=== PATIENT | female | born 1950 | race Caucasian/White ===

== ENCOUNTER 2025-05-31 08:24 | Emergency (ER) | payer MEDICARE, SELFPAY ==
[2025-05-31 08:40] VITALS: BP 130/87; PULSE 68; RESP 16; TEMP 36.7; O2SAT 99
--- NOTE | 2025-05-31 09:10 | ED.URI ---
HPI - URI/Sore Throat General Chief Complaint: Upper Respiratory Infection Stated Complaint: Upper Respiratory Symptoms Time Seen by Provider: 05/31/25 08:48 Source: patient and RN notes reviewed Mode of arrival: ambulatory Limitations: no limitations History of Present Illness HPI Narrative: Patient presents today with a 6 day history of cough, nasal congestion, ear pain, sore throat, subjective fever, nausea. She reports left eye swelling and bilateral matting with purulent green drainage that started today. Denies shortness of breath, chest pain. She has been using DayQuil and NyQuil without relief as well as warm compresses on the eyes. Denies history of asthma or COPD. Related Data Home Medications ?Medication ?Instructions ?Recorded ?Confirmed ?Last Taken ?Type estradiol 1.25 mg/1.25 gram (0.1 05/31/25 Unknown History %) transdermal gel packet progesterone micronized 200 mg mg 05/31/25 Unknown History capsule testosterone 50 mg/5 gram (1 %) 05/31/25 Unknown History transdermal gel Allergies Allergy/AdvReac Type Severity Reaction Status Date / Time No Known Allergies Allergy Verified 05/31/25 08:39 [facility] Comments At time of signature, I have reviewed and agree with nursing past medical, surgical, social and family history unless otherwise noted. Please see nursing chart for further information. There is no relevant family history pertinent to the presenting complaint Exam Narrative: GENERAL: Well-appearing, well-nourished, and in no acute distress. HEAD: Normocephalic, atraumatic. EYES: EOMI. PERRL. Bilateral injected conjunctiva. Small amount of green purulent discharge in the right lateral canthus and crusted on the lower eyelash. Chemosis on the left. ENT: Mucous membranes pink and moist. Nares mildly congested. No rhinorrhea. TMs normal bilaterally. Throat mild erythema at the bilateral palatine arch without edema or exudate. Uvula midline. NECK: Normal AROM. Supple. No lymphadenopathy. CHEST: No respiratory distress. Clear to auscultation. HEART: Regular rate and rhythm. No murmur appreciated. EXTREMITIES: Normal range of motion. No edema. SKIN: Warm, dry, no rash. Capillary refill normal. Normal skin turgor. NEURO: No focal deficits. Alert and oriented x3. Gait steady. PSYCH: Normal affect. No signs of depression or anxiety. Course Course Level of Care: Express Care Visit Vital Signs Vital signs: Vital Signs Temperature 98.1 F 05/31/25 08:40 Pulse Rate 68 05/31/25 08:40 Respiratory Rate 16 05/31/25 08:40 Blood Pressure 130/87 05/31/25 08:40 Pulse Oximetry 99 05/31/25 08:40 Temperature 98.1 F 05/31/25 08:40 Pulse Rate 68 05/31/25 08:40 Respiratory Rate 16 05/31/25 08:40 Blood Pressure 130/87 05/31/25 08:40 Pulse Oximetry 99 05/31/25 08:40 Reviewed MDM - URI/Sore Throat MDM Narrative Medical decision making narrative: 75-year-old female patient presents with a 6 day history of cough congestion, nausea, bilateral ear pain with new red and swollen eyes with purulent discharge. Rapid strep positive. She will be treated with amoxicillin for the strep throat and Polytrim for the bacterial conjunctivitis. She has no shortness of breath or any other red flag symptoms that would warrant transfer to the emergency department at this time. Vital signs stable. Anticipatory guidance and ED precautions given. Differential Diagnosis Differential diagnosis: Likely upper respiratory infection, sinusitis, viral infection, bronchitis, pharyngitis and other (Strep throat, conjunctivitis) Lab Data Attestation: I reviewed the patient's lab results. Lab results narrative: Rapid strep positive Critical Care Time Critical Care Time Critical Care Time: No Discharge Plan Discharge Clinical Impression: Strep throat, Bacterial conjunctivitis of both eyes Patient Disposition: Home Condition: Stable Instructions: Strep Throat (DC), Conjunctivitis (ED) Additional Instructions: You have tested positive for strep throat. Please take the amoxicillin as prescribed until gone. You will be contagious for 24 hours after starting the medication. Take Tylenol or Ibuprofen for pain or fever, if able. Rest and stay hydrated. Follow up with your PCP in 3 days if symptoms are not improving. Go to the ER immediately if you develop worsening symptoms such as shortness of breath, difficulty swallowing. Use the eyedrops as directed. Wash your hands frequently, especially before and after use of the drops. Your blood pressure was elevated above 120/80 today at Urgent Care. This puts you above the threshold for follow up. Please schedule a followup visit with your personal physician as soon as possible, for further evaluation and treatment. Even blood pressure exceeding 120/80 may indicate pre-hypertension. If you need help finding a new PCP, please call the physician liaison at [facility] at [phone]. Patient Language: Romanian Prescriptions: New polymyxin B sulf-trimethoprim 10,000 unit- 1 mg/mL drops 1 drp EACH EYE QID 7 Days Qty: 10 0RF amoxicillin 875 mg tablet 875 mg PO Q12H 10 Days Qty: 20 0RF No Action progesterone micronized 200 mg capsule testosterone 50 mg/5 gram (1 %) gel estradiol 1.25 mg/1.25 gram (0.1 %) gel in packet Follow-up/Referrals: PHYSICIAN,COMMISSIONER [employer] [Primary Care Provider] - Time of Disposition: 09:16
[2025-05-31 09:13] LABS: EDSTREPNEGPOS1 Positive (Negative)
== END 2025-05-31 09:21 | disposition home or self-care (01) ==
PROVIDERS: Emergency Provider Nurse Practitioner
DX: J02.0 Streptococcal pharyngitis (principal); H10.9 Unspecified conjunctivitis
CPT/HCPCS: 87880; 99213; G0463

== ENCOUNTER 2025-06-06 08:26 | Emergency (ER) | payer MEDICARE, SELFPAY ==
--- NOTE | 2025-06-06 08:30 | ED_ITS ---
HPI - Eye Problem General Chief complaint: Eye Problems Stated complaint: [facility] Source: patient and RN notes reviewed Mode of arrival: ambulatory Limitations: no limitations History of Present Illness HPI Narrative: 75-year-old female presents with concern for ongoing eye symptoms. Reports 6 days ago she was seen and treated for strep throat hand conjunctivitis. She reports her strep symptoms are improved, her eye symptoms were improving but this morning she woke up with matted eyes again. She has been using the eyedrops as directed. MD chief complaint: other (discharge) Related Data Home Medications ?Medication ?Instructions ?Recorded ?Confirmed ?Last Taken ?Type estradiol 1.25 mg/1.25 gram (0.1 05/31/25 Unknown History %) transdermal gel packet progesterone micronized 200 mg mg 05/31/25 Unknown History capsule testosterone 50 mg/5 gram (1 %) 05/31/25 Unknown History transdermal gel Allergies Allergy/AdvReac Type Severity Reaction Status Date / Time No Known Allergies Allergy Verified 06/06/25 08:39 Review of Systems Review of Systems: CONSTITUTIONAL: Denies malaise, chills, sweats, or fever. EYES: Denies visual changes. Reports bilateral redness, irritation, discharge. ENT: Denies rhinorrhea, congestion, sinus pain, otalgia or sore throat. SKIN: Denies rash or itching. NEUROLOGIC: Denies numbness, weakness, or headache. PSYCHIATRIC: Denies anxiety or depression. All systems reviewed & are unremarkable except as noted in HPI and below [facility] Comments At time of signature, agree with nursing past medical, surgical, social and family history. There is no relevant family history pertinent to the presenting complaint Exam Narrative: GENERAL: Well-appearing, well-nourished, and in no acute distress. HEAD: Normocephalic, atraumatic. EYES: PERRLA, EOMI. No nystagmus. Bilateral sclera and conjunctivae mildly injected. Upper and lower eyelid unremarkable, no periorbital edema noted ENT: Nares clear, turbinates pink, no rhinorrhea or epistaxis. Mucous membranes moist. TM pearly fisher with sharp light reflex bilaterally; no tragal tenderness. NECK: Supple. CHEST: No respiratory distress. Speaks in full sentences. HEART: Regular rate and rhythm. SKIN: Warm, dry, no visible rash. NEURO: Alert and oriented x3. PSYCH: Normal mood and affect Course Course Emergency Course: Patient is aware of diagnosis, understands and agrees to treatment plan. Anticipatory guidance given. Patient agrees to follow-up as directed and is aware of reasons to seek care at the emergency department. Portions of this record may have been created with voice recognition software Level of Care: Express Care Visit Vital Signs Vital signs: Reviewed. MDM - Eye Problem MDM Narrative Medical decision making narrative: Consideration of the following conditions may be warranted for the presenting problem, they are not final diagnoses: Bacterial conjunctivitis, allergic conjunctivitis, viral conjunctivitis, foreign body, blepharitis, chalazion, hordeolum, corneal abrasion, preseptal cellulitis, orbital cellulitis. No evidence of proptosis, ophthalmoplegia, vision loss, pain with eye movement. Exam findings show no acute concerns or changes; patient is non-toxic appearing and is in no distress. Patient is appropriate for outpatient treatment and follow-up. Critical Care Time Critical Care Time Critical Care Time: No Discharge Plan Discharge Clinical Impression: Conjunctivitis Patient Disposition: Home Condition: Stable Instructions: How to Use Eye Drops (ED) Additional Instructions: Avoid touching or rubbing your eyes. Use Aquaphor to sooth and protect the skin around your eyes Use a warm or cool washcloth on your eye for comfort Use eyedrops as directed Practice good handwashing and hygiene to prevent spread of infection You may take Tylenol or ibuprofen for pain Follow-up with PCP or block and case maker if condition is not improving in 2-3days. Go to the emergency room if you have pain behind your eye, pressure behind your eye, difficulty seeing, or other severe symptoms Patient Language: Spanish Prescriptions: New ciprofloxacin HCl 0.3 % drops See Rx Instructions EACH EYE .COMPLEX Qty: 2.5 0RF Rx Instructions: put 1-2 drps in affected eye(s) every 6hr for 7 days No Action progesterone micronized 200 mg capsule testosterone 50 mg/5 gram (1 %) gel estradiol 1.25 mg/1.25 gram (0.1 %) gel in packet polymyxin B sulf-trimethoprim 10,000 unit- 1 mg/mL drops 1 drp EACH EYE QID 7 Days Qty: 10 0RF amoxicillin 875 mg tablet 875 mg PO Q12H 10 Days Qty: 20 0RF Follow-up/Referrals: PHYSICIAN,SUPERVISOR [employer] [Primary Care Provider] - Time of Disposition: 08:50
[2025-06-06 08:35] VITALS: BP 124/88; PULSE 60; RESP 16; TEMP 36.2; O2SAT 100
== END 2025-06-06 08:55 | disposition home or self-care (01) ==
PROVIDERS: Emergency Provider Nurse Practitioner
DX: H10.9 Unspecified conjunctivitis (principal)
CPT/HCPCS: 99213; G0463